=== PATIENT | male | born 1930 | race Caucasian/White ===

== ENCOUNTER 2016-12-28 10:17 | Emergency (ER) | payer OTHER, MEDICARE ==
[~2016-12-28] VITALS: Ht 177.8 cm; Wt 86.2 kg
[~2016-12-28 10:17] MED LIST: ASPIRIN325 MG PO; CLARITIN10 MG PO; Diltiazem240 MG PO; FINASTERIDE5 MG PO; LEVOTHYROXIN0.125 MG PO; MEDROL DOSEPAK4 MG PO; MULTIVITAMIN1 CTB PO; PRINIVIL10 MG PO; VICODIN 5/500 505 MG PO; ZOCOR10 MG PO
[2016-12-28 11:46] LABS: BASO # 0.1 10*3/uL (0.0-0.1); BASO % 0.8 % (0.0-1.0); EOS # 0.3 10*3/uL (0.0-0.4); EOS % 3.2 % (1.0-4.0); HEMATOCRIT 42.7 % (42.0-52.0); HEMOGLOBIN 14.4 g/dl (14.0-18.0); LYMPH # 1.9 10*3/uL (1.3-4.4); LYMPH % 22.1 % (27.0-41.0); MEAN CORPUSCULAR HGB 31.4 pg (27.0-31.0); MEAN CORPUSCULAR HGB CONC 33.7 g/dl (33.0-37.0); MEAN PLATELET VOLUME 10.3 fl (9.6-12.3); MONO # 0.9 10*3/uL (0.1-1.0); MONO % 9.8 % (3.0-9.0); NEUT # 5.6 10*3/uL (2.3-7.9); NEUT % 63.9 % (47.0-73.0); PLATELET COUNT AUTOMATED 208 10*3/uL (130-400); RED BLOOD COUNT 4.59 10*6/uL (4.50-5.90); RED CELL DISTRI WIDTH 14.3 % (0-14.5); WHITE BLOOD COUNT 8.7 10*3/uL (4.8-10.8)
[2016-12-28 11:53] LABS: ACT PARTIAL THROMBO TIME 24.9 SECONDS (20.8-31.5); BUN 16 mg/dl (7-24); CHLORIDE 102 mmol/L (98-107); CREATININE 1.32 mg/dL (0.70-1.30); INTERNATIONAL NORM RATIO 0.9 (2.0-3.5); POTASSIUM 4.2 mmol/L (3.5-5.1); SODIUM 136 mmol/L (136-145)
[2016-12-28 12:34] LABS: BILIRUBIN 1+ (NEGATIVE); BLOOD NEGATIVE (NEGATIVE); CLARITY CLEAR (CLEAR); COLOR YELLOW (YELLOW); GLUCOSE NEGATIVE (NEGATIVE); KETONE TRACE (NEGATIVE); LEUKO ESTERASE NEGATIVE (NEGATIVE); NITRITE NEGATIVE (NEGATIVE); SPECIFIC GRAVITY >= 1.030 (1.005-1.030)
[2016-12-28 12:48] LABS: MUCOUS 2+; WBC 0-2 wbc/hpf (0-5)
== END 2016-12-28 13:14 | disposition home or self-care (01) ==
LOC: ED 10:17
PROVIDERS: Emergency Medicine
DX: R31.9 Hematuria, unspecified (principal); Z79.82 Long term (current) use of aspirin; Z79.899 Other long term (current) drug therapy

== ENCOUNTER → 2017-01-09 | Outpatient (CLI) | payer MEDICARE, OTHER ==
[2017-01-09 10:30] LABS: BASO # 0.1 10*3/uL (0.0-0.1); BASO % 0.8 % (0.0-1.0); EOS # 0.3 10*3/uL (0.0-0.4); EOS % 3.8 % (1.0-4.0); HEMATOCRIT 39.5 % (42.0-52.0); HEMOGLOBIN 13.2 g/dl (14.0-18.0); LYMPH # 1.5 10*3/uL (1.3-4.4); MEAN CELL VOLUME 92.7 fl (80.0-94.0); MEAN CORPUSCULAR HGB CONC 33.4 g/dl (33.0-37.0); MEAN PLATELET VOLUME 10.3 fl (9.6-12.3); MONO # 0.8 10*3/uL (0.1-1.0); MONO % 10.4 % (3.0-9.0); NEUT # 4.6 10*3/uL (2.3-7.9); NEUT % 63.6 % (47.0-73.0); PLATELET COUNT AUTOMATED 197 10*3/uL (130-400); RED BLOOD COUNT 4.26 10*6/uL (4.50-5.90); RED CELL DISTRI WIDTH 14.1 % (0-14.5); WHITE BLOOD COUNT 7.3 10*3/uL (4.8-10.8)
[2017-01-09 10:40] LABS: ALBUMIN 3.6 gm/dl (3.1-4.5); ALKALINE PHOSPHATASE 102 U/L (45-117); BUN 26 mg/dl (7-24); CHLORIDE 105 mmol/L (98-107); SGOT/AST 16 IU/L (3-35); SGPT/ALT 19 U/L (12-78); SODIUM 141 mmol/L (136-145)
[2017-01-09 10:46] LABS: CREATININE 1.23 mg/dL (0.70-1.30)
[2017-01-09 11:56] LABS: BILIRUBIN NEGATIVE (NEGATIVE); BLOOD NEGATIVE (NEGATIVE); CLARITY CLEAR (CLEAR); COLOR YELLOW (YELLOW); GLUCOSE NEGATIVE (NEGATIVE); KETONE NEGATIVE (NEGATIVE); LEUKO ESTERASE NEGATIVE (NEGATIVE); NITRITE NEGATIVE (NEGATIVE); PH 5.5 (5.0-9.0); SPECIFIC GRAVITY 1.015 (1.005-1.030); UROBILINOGEN 0.2 E.U./dl (0.2-1.0)
[2017-01-09 12:23] LABS: EPITHELIAL CELLS 0-2; WBC 0-2 wbc/hpf (0-5)
== END ==
LOC: LAB 10:04 → CT 11:00
PROVIDERS: Urology
DX: D30.02 Benign neoplasm of left kidney (principal); D30.01 Benign neoplasm of right kidney; K57.30 Diverticulosis of large intestine without perforation or abscess without bleeding; I70.0 Atherosclerosis of aorta; K75.89 Other specified inflammatory liver diseases; N39.0 Urinary tract infection, site not specified; D40.0 Neoplasm of uncertain behavior of prostate; E78.5 Hyperlipidemia, unspecified

== ENCOUNTER → 2017-04-23 | Outpatient (CLI) | payer MEDICARE, OTHER | END | disposition home or self-care (01) | LOC: RAD 10:08 | DX: G89.29 Other chronic pain (principal); M54.5 Low back pain ==

== ENCOUNTER 2017-08-11 09:11 | Inpatient (IN) | payer MEDICARE, OTHER ==
[~2017-08-11] VITALS: Ht 175.2 cm; Wt 79.1 kg
--- NOTE | ~2017-08-11 | CON ---
[place], [place] REPORT OF CONSULTATION NAME: BO MELARA UNIT #: [id number] ROOM: 412 DOCTOR: CELESTE CHRISLEILANI BIRTHDATE: [birth year] DOS: 08/13/2017 GASTROENDOSCOPIC REPORT HISTORY OF PRESENT ILLNESS: This is an 86-year-old patient, who was presented to the Emergency Room with rectal bleeding and initially he was thought that he is actively bleeding and we were concerned to a point where we were planning to do bleeding scan. However based on follow up on blood count, it was found that the patient is not actively losing blood. His H and H at the time of admission was 12 and 37. His followup was compared, which essentially stays at the same level of hemoglobin of 12 and in fact some improvement in the last H and H. However, white blood cell remains about 15 and neutrophil of 84. 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 PAST MEDICAL HISTORY: Hypothyroidism, hypertension, hypercholesterolemia, benign prostatic hyperplasia, vitamin D deficiency, and allergic rhinitis. PAST SURGICAL HISTORY: Bilateral knee arthroscopy. MEDICATIONS: Medication list as identified in the chart. He has stopped taking aspirin for a long time. ALLERGIES: TO NO KNOWN MEDICATIONS. SOCIAL HISTORY: Nonsmoker, nonalcohol consumer. FAMILY HISTORY: Noncontributory. REVIEW OF SYSTEMS: HEENT: Denies double vision or blurred vision. RESPIRATORY: Denies acute shortness of breath. CARDIOVASCULAR: Denies acute chest pain. DIGESTIVE SYSTEM: Blood in the stool. PHYSICAL EXAMINATION: VITAL SIGNS: Stable. HEENT: Head is normocephalic, nontraumatic. Eyes: Pupils are round and reactive. Sclerae nonicteric. Conjunctivae pink. NECK: Supple. No thyromegaly. No cervical lymphadenopathy. CHEST: Symmetric anatomy, equal expansion. No wheeze. No rhonchi. HEART: Normal sinus rhythm. No gallop. No murmur. ABDOMEN: Soft. No hepato-organomegaly. Bowel sounds present. No pulsatile mass. EXTREMITIES: No cyanosis. No pedal edema. NEUROLOGIC: Alert and oriented, slow. IMPRESSION: Lower gastrointestinal bleed, source to be determined; hypothyroidism, hyperlipidemia, hypertension, and benign prostatic hyperplasia. [place], [place] REPORT OF CONSULTATION NAME: BO MELARA UNIT #: [id number] ROOM: 412 DOCTOR: CELESTE CHRIS,LEILANI BIRTHDATE: [birth year] PLAN AND DISCUSSION: We are going to colonoscopically assess the patient. OTHER ADJUNCTIVE DIAGNOSES: As outlined above in paragraph of past medical and surgical history. Thank you very much indeed. LEILANI ALONSO MD CM:CONSTR:REPORT OF CONSULTATION 1428 08/14/17 0214 interface
--- NOTE | ~2017-08-11 | O ---
[place], [place] OPERATIVE NOTE NAME: BO MELARA UNIT #: [id number] ROOM: 412 DOCTOR: CELESTE CHRIS,LEILANI BIRTHDATE: [birth year] DOS: 08/13/2017 INDICATIONS: The patient has presented with a chief complaint of blood in stool and has been admitted for definitive evaluation. The patient had been presenting with H and H of 12 and 37, although he has been keeping his H and H, we decided to do a colonoscopy because there was a tinge of blood in stools still. PROCEDURE: Today's procedure part of investigation is colonoscopy. PREMEDICATION: Propofol. SCOPE: Olympus forward-viewing colonoscope 10L video. REPORT: After putting the patient in left lateral position and application of lubricant to the scope, the scope was introduced. Thereafter under direct visualization, I advanced the length of colon without difficulty. There was presence of fresh blood and fresh red clots in the rectum all the way to mid transverse colon. Diverticulosis throughout particularly on the left side was identified. It is difficult to distinguish which diverticulum is particularly bleeding. Therefore, procedure aborted due to the compromised visualization. The patient extubated and tolerated the procedure well. IMPRESSION: Diverticular bleed, most likely. PLAN AND DISCUSSION: I am going to organize a bleeding scan stat while he is bleeding to see if we are going to come up with a higher yield of diagnosis. LEILANI ALONSO MD CM:OPRECORD:OPERATIVE NOTE [id number] LEILANI ALONSO MD 08/13/17 1719 interface
--- NOTE | ~2017-08-11 | O ---
[place], [place] OPERATIVE NOTE NAME: BO MELARA UNIT #: [id number] ROOM: 412 DOCTOR: LEILANI ALONSO MD BIRTHDATE: [birth year] DOS: 08/15/2017 SUBJECTIVE: The patient is an 86-year-old with a chief complaint of aggressive lower GI bleed with the source was difficult to define. He had bleeding scan done, initially negative. Subsequently, on the latest studies show an area of blood collection at about cecum and after preparation, the patient was brought to the operating room for a repeat colonoscopy to define if you have carcinoma at the base of cecum. PROCEDURE: Today's procedure part of investigation is colonoscopy. PREMEDICATION: Propofol. SCOPE: Olympus forward-viewing colonoscope 10L video. REPORT: After putting the patient in left lateral position and application of lubricant to the scope, the scope was introduced. Thereafter, under direct visualization, I advanced through the length of colon without difficulty. Difficulty was some retained fluid in the colon and severe diverticulosis on the way. Base of cecum finally explored, appendiceal orifice identified, ileocecal valve was defined. There was no evidence of source of bleeding, i.e., no carcinoma in the area. Severe diverticulosis; however, along the length of the colon appreciated. Air was suctioned out. On the circumferential fashion, mucosal vascularity carefully examined. The patient extubated, tolerated the procedure well. IMPRESSION: Severe diverticulosis, no bleeding site. This patient most likely has bled from the diverticulum. PLAN AND DISCUSSION: We are going to go ahead and feed him today, regular diet and we are going to avoid anticoagulant or antiplatelets at this time. FINAL DIAGNOSIS: Severe diverticulosis, no bleeding at this time. [place], [place] OPERATIVE NOTE NAME: BO MELARA UNIT #: [id number] ROOM: 412 DOCTOR: LEILANI ALONSO MD BIRTHDATE: [birth year] LEILANI ALONSO MD CM:OPRECORD:OPERATIVE NOTE 1751 [id number] LEILANI ALONSO MD 08/15/17 1824 interface
[2017-08-11 09:17] VITALS: BP 127/80
[2017-08-11 10:00] LABS: BASO # 0.1 10*3/uL (0.0-0.1); BASO % 0.8 % (0.0-1.0); EOS # 0.4 10*3/uL (0.0-0.4); EOS % 4.8 % (1.0-4.0); HEMATOCRIT 37.9 % (42.0-52.0); HEMOGLOBIN 12.4 g/dl (14.0-18.0); LYMPH # 1.4 10*3/uL (1.3-4.4); LYMPH % 19.2 % (27.0-41.0); MEAN CELL VOLUME 94.5 fl (80.0-94.0); MEAN CORPUSCULAR HGB 30.9 pg (27.0-31.0); MEAN CORPUSCULAR HGB CONC 32.7 g/dl (33.0-37.0); MEAN PLATELET VOLUME 9.9 fl (9.6-12.3); MONO # 0.9 10*3/uL (0.1-1.0); MONO % 11.9 % (3.0-9.0); NEUT # 4.7 10*3/uL (2.3-7.9); NEUT % 62.9 % (47.0-73.0); PLATELET COUNT AUTOMATED 170 10*3/uL (130-400); RED BLOOD COUNT 4.01 10*6/uL (4.50-5.90); RED CELL DISTRI WIDTH 14.5 % (0-14.5); WHITE BLOOD COUNT 7.5 10*3/uL (4.8-10.8)
[2017-08-11 10:10] LABS: ACT PARTIAL THROMBO TIME 24.1 SECONDS (20.8-31.5); INTERNATIONAL NORM RATIO 0.9 (2.0-3.5)
[2017-08-11 10:15] LABS: ALBUMIN 3.7 gm/dl (3.1-4.5); ALKALINE PHOSPHATASE 89 U/L (45-117); BUN 25 mg/dl (7-24); CHLORIDE 107 mmol/L (98-107); CREATININE 1.14 mg/dL (0.70-1.30); POTASSIUM 4.2 mmol/L (3.5-5.1); SGOT/AST 17 IU/L (3-35); SGPT/ALT 18 U/L (12-78); SODIUM 141 mmol/L (136-145); TOTAL PROTEIN 7.3 gm/dL (6.4-8.2)
[2017-08-11 10:40] VITALS: BP 117/67
[2017-08-11] MEDS ORDERED: NORCO 5-325 TA1 EACH PO (11:16)
[2017-08-11] MEDS ORDERED: Synthroid,Lev125 MCG PO (11:17)
[2017-08-11] MEDS ORDERED: LEVOTHYROXINE150 MCG PO (11:27)
[2017-08-11] MEDS ORDERED: VITAMIN D400 I1 PO (11:28)
[2017-08-11 11:30] VITALS: BP 145/68
[2017-08-11] MEDS ORDERED: SYNTHROID137 MCG PO (11:30)
[2017-08-11 16:00] VITALS: BP 131/68
[2017-08-11 18:48] LABS: BASO # 0.1 10*3/uL (0.0-0.1); BASO % 0.5 % (0.0-1.0); EOS # 0.2 10*3/uL (0.0-0.4); EOS % 2.1 % (1.0-4.0); HEMATOCRIT 36.7 % (42.0-52.0); HEMOGLOBIN 12.2 g/dl (14.0-18.0); LYMPH # 1.7 10*3/uL (1.3-4.4); LYMPH % 18.7 % (27.0-41.0); MEAN CELL VOLUME 93.9 fl (80.0-94.0); MEAN CORPUSCULAR HGB 31.2 pg (27.0-31.0); MEAN CORPUSCULAR HGB CONC 33.2 g/dl (33.0-37.0); MEAN PLATELET VOLUME 9.8 fl (9.6-12.3); MONO # 0.9 10*3/uL (0.1-1.0); MONO % 9.6 % (3.0-9.0); NEUT # 6.4 10*3/uL (2.3-7.9); NEUT % 68.9 % (47.0-73.0); PLATELET COUNT AUTOMATED 175 10*3/uL (130-400); RED BLOOD COUNT 3.91 10*6/uL (4.50-5.90); RED CELL DISTRI WIDTH 14.5 % (0-14.5); WHITE BLOOD COUNT 9.3 10*3/uL (4.8-10.8)
[2017-08-11 20:00] VITALS: BP 136/67
[2017-08-12] VITALS: BP 143/72
[2017-08-12 01:29] LABS: BASO # 0.1 10*3/uL (0.0-0.1); BASO % 0.7 % (0.0-1.0); EOS # 0.3 10*3/uL (0.0-0.4); EOS % 3.9 % (1.0-4.0); HEMATOCRIT 35.4 % (42.0-52.0); HEMOGLOBIN 11.5 g/dl (14.0-18.0); LYMPH # 1.9 10*3/uL (1.3-4.4); LYMPH % 24.8 % (27.0-41.0); MEAN CELL VOLUME 94.7 fl (80.0-94.0); MEAN CORPUSCULAR HGB 30.7 pg (27.0-31.0); MEAN CORPUSCULAR HGB CONC 32.5 g/dl (33.0-37.0); MEAN PLATELET VOLUME 10.5 fl (9.6-12.3); MONO # 0.8 10*3/uL (0.1-1.0); MONO % 10.9 % (3.0-9.0); NEUT # 4.5 10*3/uL (2.3-7.9); NEUT % 59.4 % (47.0-73.0); PLATELET COUNT AUTOMATED 170 10*3/uL (130-400); RED BLOOD COUNT 3.74 10*6/uL (4.50-5.90); RED CELL DISTRI WIDTH 14.5 % (0-14.5); WHITE BLOOD COUNT 7.5 10*3/uL (4.8-10.8)
[2017-08-12 06:40] LABS: BASO # 0.1 10*3/uL (0.0-0.1); BASO % 0.7 % (0.0-1.0); EOS # 0.3 10*3/uL (0.0-0.4); EOS % 4.4 % (1.0-4.0); LYMPH # 1.4 10*3/uL (1.3-4.4); LYMPH % 20.5 % (27.0-41.0); MEAN CELL VOLUME 93.5 fl (80.0-94.0); MEAN CORPUSCULAR HGB 31.2 pg (27.0-31.0); MEAN CORPUSCULAR HGB CONC 33.3 g/dl (33.0-37.0); MEAN PLATELET VOLUME 10.5 fl (9.6-12.3); MONO # 0.8 10*3/uL (0.1-1.0); MONO % 11.2 % (3.0-9.0); NEUT # 4.4 10*3/uL (2.3-7.9); NEUT % 62.9 % (47.0-73.0); PLATELET COUNT AUTOMATED 174 10*3/uL (130-400); RED BLOOD COUNT 3.85 10*6/uL (4.50-5.90); RED CELL DISTRI WIDTH 14.6 % (0-14.5)
[2017-08-12 07:14] LABS: ALBUMIN 3.5 gm/dl (3.1-4.5); ALKALINE PHOSPHATASE 89 U/L (45-117); BUN 17 mg/dl (7-24); CHLORIDE 107 mmol/L (98-107); CREATININE 1.04 mg/dL (0.70-1.30); SGOT/AST 15 IU/L (3-35); SGPT/ALT 16 U/L (12-78); SODIUM 142 mmol/L (136-145); TOTAL PROTEIN 7.3 gm/dL (6.4-8.2)
[2017-08-12 08:00] VITALS: BP 129/74
[2017-08-12 11:48] LABS: BASO % 0.4 % (0.0-1.0); EOS # 0.2 10*3/uL (0.0-0.4); EOS % 2.6 % (1.0-4.0); HEMOGLOBIN 13.9 g/dl (14.0-18.0); LYMPH # 1.9 10*3/uL (1.3-4.4); MEAN CORPUSCULAR HGB 30.8 pg (27.0-31.0); MEAN CORPUSCULAR HGB CONC 32.8 g/dl (33.0-37.0); MEAN PLATELET VOLUME 10.3 fl (9.6-12.3); MONO # 0.8 10*3/uL (0.1-1.0); MONO % 9.4 % (3.0-9.0); NEUT # 5.9 10*3/uL (2.3-7.9); NEUT % 66.3 % (47.0-73.0); PLATELET COUNT AUTOMATED 204 10*3/uL (130-400); RED BLOOD COUNT 4.51 10*6/uL (4.50-5.90); RED CELL DISTRI WIDTH 14.3 % (0-14.5); WHITE BLOOD COUNT 8.9 10*3/uL (4.8-10.8)
[2017-08-12 12:00] VITALS: BP 144/79
[2017-08-12 12:01] LABS: HEMATOCRIT 42.4 % (42.0-52.0)
[2017-08-12 16:00] VITALS: BP 124/63
[2017-08-12 20:00] VITALS: BP 124/61
[2017-08-13] VITALS (8 sets, daily range): BP systolic 90–160; BP diastolic 38–83
[2017-08-13 06:42] LABS: BASO # 0.1 10*3/uL (0.0-0.1); BASO % 0.3 % (0.0-1.0); EOS # 0.1 10*3/uL (0.0-0.4); EOS % 0.4 % (1.0-4.0); HEMATOCRIT 37.3 % (42.0-52.0); HEMOGLOBIN 12.1 g/dl (14.0-18.0); LYMPH % 6.6 % (27.0-41.0); MEAN CELL VOLUME 94.2 fl (80.0-94.0); MEAN CORPUSCULAR HGB 30.6 pg (27.0-31.0); MEAN CORPUSCULAR HGB CONC 32.4 g/dl (33.0-37.0); MEAN PLATELET VOLUME 10.8 fl (9.6-12.3); MONO # 1.1 10*3/uL (0.1-1.0); MONO % 7.2 % (3.0-9.0); NEUT # 13.2 10*3/uL (2.3-7.9); NEUT % 84.9 % (47.0-73.0); PLATELET COUNT AUTOMATED 174 10*3/uL (130-400); RED BLOOD COUNT 3.96 10*6/uL (4.50-5.90); RED CELL DISTRI WIDTH 14.5 % (0-14.5); WHITE BLOOD COUNT 15.5 10*3/uL (4.8-10.8)
[2017-08-13 19:49] LABS: HEMATOCRIT 35.8 % (42.0-52.0); HEMOGLOBIN 11.9 g/dl (14.0-18.0)
[2017-08-14] VITALS: BP 140/87
[2017-08-14 07:17] LABS: BASO # 0.1 10*3/uL (0.0-0.1); BASO % 0.5 % (0.0-1.0); EOS # 0.2 10*3/uL (0.0-0.4); EOS % 2.6 % (1.0-4.0); HEMATOCRIT 34.7 % (42.0-52.0); HEMOGLOBIN 11.4 g/dl (14.0-18.0); LYMPH # 1.2 10*3/uL (1.3-4.4); LYMPH % 13.2 % (27.0-41.0); MEAN CORPUSCULAR HGB 30.9 pg (27.0-31.0); MEAN CORPUSCULAR HGB CONC 32.9 g/dl (33.0-37.0); MEAN PLATELET VOLUME 10.4 fl (9.6-12.3); MONO # 0.9 10*3/uL (0.1-1.0); MONO % 9.9 % (3.0-9.0); NEUT # 6.8 10*3/uL (2.3-7.9); NEUT % 73.6 % (47.0-73.0); PLATELET COUNT AUTOMATED 150 10*3/uL (130-400); RED BLOOD COUNT 3.69 10*6/uL (4.50-5.90); RED CELL DISTRI WIDTH 14.5 % (0-14.5); WHITE BLOOD COUNT 9.2 10*3/uL (4.8-10.8)
[2017-08-14 07:31] LABS: BUN 16 mg/dl (7-24); CHLORIDE 110 mmol/L (98-107); POTASSIUM 3.9 mmol/L (3.5-5.1); SODIUM 142 mmol/L (136-145)
[2017-08-14 07:32] LABS: CREATININE 0.93 mg/dL (0.70-1.30)
[2017-08-14 08:00] VITALS: BP 142/90
[2017-08-14 12:00] VITALS: BP 148/52
[2017-08-14 16:00] VITALS: BP 133/75
[2017-08-14 20:00] VITALS: BP 133/74
[2017-08-15] VITALS (9 sets, daily range): BP systolic 111–150; BP diastolic 61–82
[2017-08-15 07:20] LABS: BASO % 0.3 % (0.0-1.0); EOS # 0.1 10*3/uL (0.0-0.4); EOS % 0.6 % (1.0-4.0); HEMATOCRIT 32.3 % (42.0-52.0); HEMOGLOBIN 10.7 g/dl (14.0-18.0); LYMPH # 1.1 10*3/uL (1.3-4.4); LYMPH % 9.8 % (27.0-41.0); MEAN CELL VOLUME 93.4 fl (80.0-94.0); MEAN CORPUSCULAR HGB 30.9 pg (27.0-31.0); MEAN CORPUSCULAR HGB CONC 33.1 g/dl (33.0-37.0); MEAN PLATELET VOLUME 10.8 fl (9.6-12.3); MONO # 1.3 10*3/uL (0.1-1.0); MONO % 11.7 % (3.0-9.0); NEUT # 8.5 10*3/uL (2.3-7.9); NEUT % 77.2 % (47.0-73.0); PLATELET COUNT AUTOMATED 170 10*3/uL (130-400); RED BLOOD COUNT 3.46 10*6/uL (4.50-5.90); RED CELL DISTRI WIDTH 14.2 % (0-14.5); WHITE BLOOD COUNT 11.1 10*3/uL (4.8-10.8)
[2017-08-15 07:35] LABS: BUN 12 mg/dl (7-24); CHLORIDE 107 mmol/L (98-107); POTASSIUM 3.5 mmol/L (3.5-5.1); SODIUM 141 mmol/L (136-145)
[2017-08-16] VITALS: BP 106/48
[2017-08-16 07:22] LABS: BASO % 0.3 % (0.0-1.0); EOS # 0.2 10*3/uL (0.0-0.4); EOS % 1.3 % (1.0-4.0); HEMATOCRIT 31.6 % (42.0-52.0); HEMOGLOBIN 10.5 g/dl (14.0-18.0); LYMPH # 1.6 10*3/uL (1.3-4.4); LYMPH % 14.2 % (27.0-41.0); MEAN CELL VOLUME 94.3 fl (80.0-94.0); MEAN CORPUSCULAR HGB 31.3 pg (27.0-31.0); MEAN CORPUSCULAR HGB CONC 33.2 g/dl (33.0-37.0); MEAN PLATELET VOLUME 10.9 fl (9.6-12.3); MONO # 1.3 10*3/uL (0.1-1.0); MONO % 11.2 % (3.0-9.0); NEUT # 8.2 10*3/uL (2.3-7.9); NEUT % 72.5 % (47.0-73.0); PLATELET COUNT AUTOMATED 172 10*3/uL (130-400); RED BLOOD COUNT 3.35 10*6/uL (4.50-5.90); RED CELL DISTRI WIDTH 14.5 % (0-14.5); WHITE BLOOD COUNT 11.3 10*3/uL (4.8-10.8)
[2017-08-16 08:00] VITALS: BP 126/58
[2017-08-16 08:00] LABS: BUN 13 mg/dl (7-24); CHLORIDE 106 mmol/L (98-107); CREATININE 0.98 mg/dL (0.70-1.30); POTASSIUM 3.5 mmol/L (3.5-5.1); SODIUM 141 mmol/L (136-145)
[2017-08-16 12:00] VITALS: BP 130/65
[2017-08-16 16:00] VITALS: BP 120/55
[2017-08-16 20:00] VITALS: BP 131/58
[2017-08-17] VITALS: BP 119/61; BP 131/49
[2017-08-17 07:00] LABS: BASO % 0.4 % (0.0-1.0); EOS # 0.3 10*3/uL (0.0-0.4); EOS % 2.7 % (1.0-4.0); HEMATOCRIT 29.6 % (42.0-52.0); HEMOGLOBIN 9.8 g/dl (14.0-18.0); LYMPH # 1.4 10*3/uL (1.3-4.4); LYMPH % 14.7 % (27.0-41.0); MEAN CELL VOLUME 92.8 fl (80.0-94.0); MEAN CORPUSCULAR HGB 30.7 pg (27.0-31.0); MEAN CORPUSCULAR HGB CONC 33.1 g/dl (33.0-37.0); MEAN PLATELET VOLUME 10.6 fl (9.6-12.3); MONO # 1.3 10*3/uL (0.1-1.0); MONO % 13.5 % (3.0-9.0); NEUT # 6.6 10*3/uL (2.3-7.9); NEUT % 68.3 % (47.0-73.0); PLATELET COUNT AUTOMATED 167 10*3/uL (130-400); RED BLOOD COUNT 3.19 10*6/uL (4.50-5.90); RED CELL DISTRI WIDTH 14.6 % (0-14.5); WHITE BLOOD COUNT 9.7 10*3/uL (4.8-10.8)
[2017-08-17 08:00] VITALS: BP 131/54
== END 2017-08-17 10:58 | disposition home or self-care (01) | DRG 379 ==
LOC: ED 09:11 → 4E 10:41 → EDHOLD 10:41 → 4E 10:50
PROVIDERS: Emergency Medicine; Family Medicine; Internal Medicine; Internal Medicine Gastroenterology; Internal Medicine Nephrology
PROC: 0DJD8ZZ Inspection of Lower Intestinal Tract, Via Natural or Artificial Opening Endoscopic (ICD-10-PCS; principal; 2017-08-13)
PROC: 0DJD8ZZ Inspection of Lower Intestinal Tract, Via Natural or Artificial Opening Endoscopic (ICD-10-PCS; 2017-08-15)
DX: K57.91 Diverticulosis of intestine, part unspecified, without perforation or abscess with bleeding (principal); D64.9 Anemia, unspecified; G89.29 Other chronic pain; M54.9 Dorsalgia, unspecified; N40.0 Benign prostatic hyperplasia without lower urinary tract symptoms; E78.00 Pure hypercholesterolemia, unspecified; E03.9 Hypothyroidism, unspecified; E55.9 Vitamin D deficiency, unspecified; E78.5 Hyperlipidemia, unspecified; J30.2 Other seasonal allergic rhinitis; I10 Essential (primary) hypertension; Z96.653 Presence of artificial knee joint, bilateral; Z79.899 Other long term (current) drug therapy; Z79.82 Long term (current) use of aspirin; Z82.49 Family history of ischemic heart disease and other diseases of the circulatory system

== ENCOUNTER → 2017-08-20 | Outpatient (CLI) | payer MEDICARE, OTHER ==
[~2017-08-20] MED LIST changes: +LEVOTHYROXINE150 MCG PO; +NORCO 5-325 TA1 EACH PO; +SYNTHROID137 MCG PO; +Synthroid,Lev125 MCG PO; +VITAMIN D400 I1 PO
[2017-08-20 12:11] LABS: BASO # 0.1 10*3/uL (0.0-0.1); BASO % 0.7 % (0.0-1.0); EOS # 0.5 10*3/uL (0.0-0.4); EOS % 6.4 % (1.0-4.0); HEMATOCRIT 31.5 % (42.0-52.0); HEMOGLOBIN 10.2 g/dl (14.0-18.0); LYMPH # 1.4 10*3/uL (1.3-4.4); LYMPH % 16.6 % (27.0-41.0); MEAN CELL VOLUME 94.9 fl (80.0-94.0); MEAN CORPUSCULAR HGB 30.7 pg (27.0-31.0); MEAN CORPUSCULAR HGB CONC 32.4 g/dl (33.0-37.0); MEAN PLATELET VOLUME 10.8 fl (9.6-12.3); MONO # 0.8 10*3/uL (0.1-1.0); MONO % 10.1 % (3.0-9.0); NEUT # 5.3 10*3/uL (2.3-7.9); NEUT % 65.7 % (47.0-73.0); PLATELET COUNT AUTOMATED 249 10*3/uL (130-400); RED BLOOD COUNT 3.32 10*6/uL (4.50-5.90); RED CELL DISTRI WIDTH 14.5 % (0-14.5); WHITE BLOOD COUNT 8.1 10*3/uL (4.8-10.8)
== END | disposition home or self-care (01) ==
LOC: LAB 10:21
PROVIDERS: Internal Medicine
DX: D72.810 Lymphocytopenia (principal)

== ENCOUNTER → 2018-11-12 | Outpatient (CLI) | payer MEDICARE, OTHER | END | disposition home or self-care (01) | LOC: RAD 10:59 | DX: M16.0 Bilateral primary osteoarthritis of hip (principal); M41.86 Other forms of scoliosis, lumbar region; M47.816 Spondylosis without myelopathy or radiculopathy, lumbar region ==

== ENCOUNTER 2019-07-23 11:00 | Inpatient (IN) | payer OTHER ==
[~2019-07-23] VITALS: Ht 177.8 cm; Wt 81.0 kg
[~2019-07-23 11:00] MED LIST changes: +DILTIAZEM ER120 MG PO; -Diltiazem240 MG PO
[2019-07-23 11:27] VITALS: BP 113/80
[2019-07-23 11:41] LABS: BASO % 0.5 % (0.0-1.0); EOS # 0.1 10*3/uL (0.0-0.4); EOS % 0.6 % (1.0-4.0); HEMATOCRIT 34.2 % (42.0-52.0); LYMPH # 0.6 10*3/uL (1.3-4.4); LYMPH % 7.7 % (27.0-41.0); MEAN CELL VOLUME 93.4 fl (80.0-94.0); MEAN CORPUSCULAR HGB 29.8 pg (27.0-31.0); MEAN CORPUSCULAR HGB CONC 31.9 g/dl (33.0-37.0); MEAN PLATELET VOLUME 10.1 fl (9.6-12.3); MONO # 1.1 10*3/uL (0.1-1.0); NEUT # 6.3 10*3/uL (2.3-7.9); PLATELET COUNT AUTOMATED 273 10*3/uL (130-400); RED BLOOD COUNT 3.66 10*6/uL (4.50-5.90); RED CELL DISTRI WIDTH 14.4 % (0-14.5); WHITE BLOOD COUNT 8.1 10*3/uL (4.8-10.8)
[2019-07-23 11:52] LABS: ACT PARTIAL THROMBO TIME 30.5 SECONDS (20.0-32.1)
[2019-07-23 11:57] LABS: ALBUMIN 2.4 gm/dl (3.1-4.5); ALKALINE PHOSPHATASE 58 U/L (45-117); BUN 17 mg/dl (7-24); CHLORIDE 108 mmol/L (98-107); POTASSIUM 4.1 mmol/L (3.5-5.1); SGOT/AST 16 IU/L (3-35); SGPT/ALT 22 U/L (12-78); SODIUM 140 mmol/L (136-145); TOTAL PROTEIN 6.7 gm/dL (6.4-8.2)
[2019-07-23 12:00] LABS: TROPONIN I 0.047 ng/ml (<0.045)
--- NOTE | 2019-07-23 12:10 | NUR ---
PATIENT DENIES WOUNDS A&OX3.
[2019-07-23 12:12] VITALS: BP 121/77
--- NOTE | 2019-07-23 14:40 | NUR ---
A 88, admitted to , under the services of MECHE Roberson DO with a diagnosis of CHF. Chief complaint is SOB. Patient arrived via stretcher from ER. Monitor applied. Initial assessment completed. Vital signs taken and recorded. MECHE ROBERSON DO notified of admission to the unit. Orders received. See assessment for past medical history, medications and allergies. Patient and/or family oriented to unit. [facility] visitation policy reviewed. Clothing/patient valuable form completed. ANNABEL SYED
[2019-07-23 14:41] VITALS: BP 130/84
--- NOTE | 2019-07-23 14:41 | NUR ---
PATIENT TAKEN TO 5TH FLOOR BY THIS NURSE AND REPORT GIVEN TO ANNABEL LEMUS SBAR FAXED.
[2019-07-23] MEDS ORDERED: MOTRIN IB200 M1 PO (14:42)
[2019-07-23 15:00] VITALS: BP 118/84
[2019-07-23 16:00] VITALS: BP 114/68
--- NOTE | 2019-07-23 16:27 | NUR ---
attempted to call consult to dr. pearl office, several attempts made, no one distribution tech at this time to take call.
[2019-07-23] MEDS ORDERED: SYNTHROID,LEVO88 MCG PO (16:32)
[2019-07-23] MEDS ORDERED: FLOMAX0.4 MG PO (16:32)
[2019-07-23] MEDS ORDERED: ARTIFICIAL TEAR1514 OP (16:34)
--- NOTE | 2019-07-23 16:55 | NUR ---
DR. DENT OFFICE ANSWERING SERVICE AWARE OF CONSULT
--- NOTE | 2019-07-23 18:30 | NUR ---
DR. PHAM AWARE OF RUNS OF [facility], NO NEW ORDERS AT THIS TIME. CARDIOLOGY IS ALREADY CONSULTED AND WILL SEE TOMORROW.
--- NOTE | 2019-07-23 18:37 | NUR ---
DR. PHAM NOTIFIED THAT PATIENT VOID 250 AND PVR WAS 726. DR. PHAM TO ENTER ORDERS FOR HANCOCK CATH.
--- NOTE | 2019-07-23 18:48 | NUR ---
DR VILLAVICENCIO NOTIFIED OF CONSULT, NOTIFIED TO VIEW CT SCAN, DR. VILLAVICENCIO IS HAVING DIFFICULTY LOOKING AT CT SCAN FROM HOME.WILL SEE IN THE MORNING
--- NOTE | 2019-07-23 18:53 | NUR ---
#16 HANCOCK PLACED WITHOUT DIFFICULTY, CLEAR YELLOW URINE OBTAINED.
--- NOTE | 2019-07-23 19:02 | NUR ---
DR. VILLAVICENCIO CALLED BACK AND WAS ABLE TO VIEW CT SCAN, DR. VILLAVICENCIO WANTS PATIENT TESTING FOR COVID AND PUT IN ISOLATION. METAL SORTER NOTIFIED
[2019-07-23 19:31] LABS: ABG BASE EXCESS 4.8 mmol/L (-2.0-2.0); ARTERIAL BLOOD GAS PH 7.489 (7.35-7.45)
[2019-07-23 20:00] VITALS: BP 107/55
[2019-07-24] VITALS: BP 106/67
[2019-07-24 04:00] VITALS: BP 105/73
[2019-07-24 05:51] LABS: BASO # 0.1 10*3/uL (0.0-0.1); BASO % 0.7 % (0.0-1.0); EOS # 0.1 10*3/uL (0.0-0.4); EOS % 1.5 % (1.0-4.0); HEMATOCRIT 34.4 % (42.0-52.0); LYMPH # 0.8 10*3/uL (1.3-4.4); LYMPH % 10.1 % (27.0-41.0); MEAN CELL VOLUME 94.8 fl (80.0-94.0); MEAN CORPUSCULAR HGB CONC 31.7 g/dl (33.0-37.0); MEAN PLATELET VOLUME 10.2 fl (9.6-12.3); MONO % 12.5 % (3.0-9.0); PLATELET COUNT AUTOMATED 246 10*3/uL (130-400); RED BLOOD COUNT 3.63 10*6/uL (4.50-5.90); RED CELL DISTRI WIDTH 14.4 % (0-14.5)
[2019-07-24 06:33] LABS: BUN 16 mg/dl (7-24); CHLORIDE 104 mmol/L (98-107); CREATININE 0.95 mg/dL (0.70-1.30); POTASSIUM 3.8 mmol/L (3.5-5.1); SODIUM 139 mmol/L (136-145)
[2019-07-24 08:00] VITALS: BP 111/52; BP 99/61
--- NOTE | 2019-07-24 09:30 | NUR ---
City Assessor in to talk to patient. Patient states lives at home with . There are no steps in the home. Physician: evangelista wang [place] health services: none Patient's level of ADLs: MINIMAL ASSIST Patient has working utilities: all working DME: cane and walker Follow-up physician's appointment after d/c: will be made by hospitalist nurse upon discharge Does patient want to access PORTAL?: no Discharge plan discussed with patient's daughter Rahda. radha stated patient lives at home with , he uses a cane or walker for ambulation, does not drive. family takes patient and to doctors appointments or the grocery store. discussed with Radha patient not getting around very well at home and possibly going to a short term assisted where he will receive 5 days of physical therapy and 24 hour care. daughter stated she would discuss this with her mom, daughter stated she and her mom had this discussion about a short term skilled a few weeks ago and mom stated she would not let patient go to a SNF, also discussed with her VNA and educated her on the services they provide, daughter stated she would talk with her mom regarding this but mom had stated she did not want anyone in their home, daughter will contact case management when she has discussed this with mom,. JAKY LEONARD
--- NOTE | 2019-07-24 09:30 | NUR ---
RESTING IN BED. CONFUSED TO PLACE AND TIME. PALE. RALES HEARD IN ANTERIOR LUNG SOUNDS. 1+EDEMA NOTED TO BILATERAL LOWER LEGS. BP 99/61
[2019-07-24 12:00] VITALS: BP 106/45
--- NOTE | 2019-07-24 13:15 | NUR ---
Abnormal echo noted due to low EF. nurse notified. Dr. hansen notified.
[2019-07-24 16:00] VITALS: BP 94/48
[2019-07-24 20:00] VITALS: BP 102/69
--- NOTE | 2019-07-24 20:00 | NUR ---
Patient resting with no signs of distress. Monitoring on screen.
--- NOTE | 2019-07-24 23:00 | NUR ---
ASSUMED CARE FOR THIS PT AT THIS TIME. PT RESTING QUIETLY IN BED. NO C/O VOICED. PT REFUSING TO BE TURNED AT THIS TIME. BED IN LOW POSITION W/WHEELS LOCKED AND ALARM ON. BED BATH OFFERED. PT ONLY WANTS HIS FACE WASHED. WARM WASH CLOTH OFFERED AND ACCEPTED. CALL LIGHT IN REACH.
[2019-07-25] VITALS: BP 101/62
--- NOTE | 2019-07-25 02:40 | NUR ---
BIGEMINY NOTED AT THIS TIME. PT RESTING QUIETLY IN BED. NO S/S OF DISTRESS NOTED.
--- NOTE | 2019-07-25 03:56 | NUR ---
24 HR chart check completed.
--- NOTE | 2019-07-25 04:20 | NUR ---
PT HAD A RUN OF SVT, HR 135. DR. WILSON ON FLOOR AND MADE AWARE. PT ASYMPTOMATIC AND IMMEDIATELY BACK INTO SR W/BIGEMINY. WILL CONTINUE TO MONITOR.
[2019-07-25 05:48] LABS: ALBUMIN 2.1 gm/dl (3.1-4.5); ALKALINE PHOSPHATASE 56 U/L (45-117); BUN 17 mg/dl (7-24); CHLORIDE 99 mmol/L (98-107); CREATININE 1.01 mg/dL (0.70-1.30); POTASSIUM 3.4 mmol/L (3.5-5.1); SGOT/AST 17 IU/L (3-35); SGPT/ALT 18 U/L (12-78); SODIUM 137 mmol/L (136-145); TOTAL PROTEIN 6.4 gm/dL (6.4-8.2)
[2019-07-25 06:08] LABS: BASO % 0.4 % (0.0-1.0); EOS # 0.2 10*3/uL (0.0-0.4); EOS % 2.3 % (1.0-4.0); HEMATOCRIT 34.1 % (42.0-52.0); LYMPH % 14.2 % (27.0-41.0); MEAN CELL VOLUME 93.9 fl (80.0-94.0); MEAN CORPUSCULAR HGB 29.8 pg (27.0-31.0); MEAN CORPUSCULAR HGB CONC 31.7 g/dl (33.0-37.0); MEAN PLATELET VOLUME 10.7 fl (9.6-12.3); MONO % 13.9 % (3.0-9.0); NEUT # 4.8 10*3/uL (2.3-7.9); NEUT % 68.9 % (47.0-73.0); PLATELET COUNT AUTOMATED 266 10*3/uL (130-400); RED BLOOD COUNT 3.63 10*6/uL (4.50-5.90); RED CELL DISTRI WIDTH 14.3 % (0-14.5)
[2019-07-25 08:00] VITALS: BP 98/58
--- NOTE | 2019-07-25 09:13 | NUR ---
PATIENT RSTING IN BED. NO COMPLAINTS VOICED. ROUTINE MEDICATIONS GIVEN WITHOUT DIFFICULTY. BREAKFAST SET UP PER PATIENT'S PREFERENCE.
--- NOTE | 2019-07-25 10:10 | NUR ---
NOTIFIED DR SANABRIA AND DR TAVARES THAT PATIENT'S QT IS 509. NEW ORDERS RECEIVED.
--- NOTE | 2019-07-25 10:23 | NUR ---
PATIENT'S HEART RATE INCREASED TO 130-140 FOR ABOUT 2 MINUTES. PATIENT SEEMS ASYMPTOMATIC. HR 85 NOW.
--- NOTE | 2019-07-25 10:49 | NUR ---
CERTIFIED ORTHOPTIST RECEIVED CALL FROM PATIENTS DAUGHTER. PASSCODE VERFIED. PATIENTS DAUGHTER WANTED TO MAKE SURE THAT IT WAS KNOWN THE DISCHARGE PLAN IS FOR THE PATIENT TO RETURN HOME WITH HOME HEALTH. CERTIFIED ORTHOPTIST ASKED WHAT AGENCY THEY WOULD LIKE, PATIENT DAUGHTER STATED THEY HAVE NOT THOUGHT ABOUT IT. CERTIFIED ORTHOPTIST OFFERED TO EMAIL HER A LIST OF AGENCIES. EMAILED SENT TO WILL AWAIT RETURN CALL WITH HOME HEALTH AGENCY DECISION. FAMILY WOULD LIKE [facility]. MEDICAL MICROBIOLOGIST NOTIFIED.
--- NOTE | 2019-07-25 13:49 | NUR ---
FILTER WASHER AND PRESSER FA[facility]ED [facility]
[2019-07-25 14:00] VITALS: BP 90/60
[2019-07-25 14:38] LABS: BUN 18 mg/dl (7-24); CHLORIDE 97 mmol/L (98-107); CREATININE 1.03 mg/dL (0.70-1.30); POTASSIUM 3.4 mmol/L (3.5-5.1); SODIUM 136 mmol/L (136-145)
--- NOTE | 2019-07-25 14:55 | NUR ---
DR SANABRIA NOTIFIED OF POTASIUM AND MAGNESIUM LEVEL. NEW ORDERS RECEIVED.
--- NOTE | 2019-07-25 16:00 | NUR ---
Family updated when they called in.
[2019-07-25 16:10] VITALS: BP 90/42
--- NOTE | 2019-07-25 16:10 | NUR ---
Assumed care of this pt. PT alert and comfortable. Lungs diminished with posterior rales. Pt had o2 off at this time. Reapplied via Nc to pt. Pt o2 was set to 3l. Denies pain. HR irregular. Afib on monitor with pvcs.
--- NOTE | 2019-07-25 19:30 | NUR ---
ASSUMED CARE FOR THIS PT AT THIS TIME. PT RESTING QUIETLY IN BED. PT HAVING RUNS OF PVC'S. PT ASYMPTOMATIC. VSS. WILL CONTINUE TO MONITOR.
[2019-07-25 20:00] VITALS: BP 96/49
--- NOTE | 2019-07-25 20:00 | NUR ---
PT HAD [address] BEAT RUN OF SVT. DR. GRULLON NOTIFIED. STAT EKG, BMP, MG ORDERED.
--- NOTE | 2019-07-25 20:19 | NUR ---
DR. MACIAS NOTIFIED OF PT'S 22 BEAT RUN OF PVC'S. T.O. RCVD FOR METOPROLOL SUCCINATE 12.5 MG PO DAILY TO START NOW AND PARAMETERS TO HOLD IF SBP <90. WILL SEE PT TOMORROW.
[2019-07-25 21:46] LABS: BUN 20 mg/dl (7-24); CHLORIDE 97 mmol/L (98-107); CREATININE 1.07 mg/dL (0.70-1.30); POTASSIUM 3.6 mmol/L (3.5-5.1); SODIUM 135 mmol/L (136-145)
[2019-07-26 00:03] VITALS: BP 81/48
--- NOTE | 2019-07-26 00:19 | NUR ---
DR. GRULLON NOTIFIED OF PT'S LOW BP. MONITOR PT AT THIS TIME.
--- NOTE | 2019-07-26 03:35 | NUR ---
DR. GRULLON NOTIFIED OF PT'S BUTTOCKS RED/SORE. TO ORDER CALAZIME TO AREA.
[2019-07-26 04:00] VITALS: BP 101/61
[2019-07-26 06:17] LABS: BASO % 0.4 % (0.0-1.0); EOS # 0.1 10*3/uL (0.0-0.4); EOS % 1.1 % (1.0-4.0); HEMATOCRIT 34.4 % (42.0-52.0); LYMPH # 0.7 10*3/uL (1.3-4.4); LYMPH % 7.9 % (27.0-41.0); MEAN CELL VOLUME 92.7 fl (80.0-94.0); MEAN CORPUSCULAR HGB 29.9 pg (27.0-31.0); MEAN CORPUSCULAR HGB CONC 32.3 g/dl (33.0-37.0); MONO # 1.2 10*3/uL (0.1-1.0); MONO % 13.9 % (3.0-9.0); NEUT # 6.8 10*3/uL (2.3-7.9); NEUT % 76.4 % (47.0-73.0); PLATELET COUNT AUTOMATED 253 10*3/uL (130-400); RED BLOOD COUNT 3.71 10*6/uL (4.50-5.90); RED CELL DISTRI WIDTH 14.2 % (0-14.5); WHITE BLOOD COUNT 8.9 10*3/uL (4.8-10.8)
[2019-07-26 06:46] LABS: ALBUMIN 2.1 gm/dl (3.1-4.5); ALKALINE PHOSPHATASE 51 U/L (45-117); BUN 18 mg/dl (7-24); CHLORIDE 99 mmol/L (98-107); CREATININE 1.02 mg/dL (0.70-1.30); SGOT/AST 14 IU/L (3-35); SGPT/ALT 16 U/L (12-78); SODIUM 137 mmol/L (136-145); TOTAL PROTEIN 6.7 gm/dL (6.4-8.2)
[2019-07-26 08:00] VITALS: BP 109/71
--- NOTE | 2019-07-26 10:37 | NUR ---
PT REFUSES OUTDOOR EDUCATION TEACHER AT THIS TIME.
[2019-07-26 12:00] VITALS: BP 110/76
--- NOTE | 2019-07-26 19:00 | NUR ---
ASSUMED CARE FOR THIS PT AT THIS TIME. PT RESTING QUIETLY IN BED. PT C/O BLE PAIN. WILL MEDICATE. ALERT AND ORIENTED TO PERSON/TIME. PT THINKS HE IS HOME. REORIENTED TO PLACE. PT LETHARGIC. HEART MONITOR REPLACED. BED ALARM ON W/WHEELS LOCKED AND CALL LIGHT IN REACH.
[2019-07-26 20:00] VITALS: BP 96/46
--- NOTE | 2019-07-26 21:10 | NUR ---
ENTERED PT'S ROOM TO GIVE HIM COFFEE PER HIS REQUEST. PT IN RESP DISTRESS, RESPS TACHY AND LABORED, C/O SOB, SAT 81% ON 2LNC. PT REPOSITIONED IN BED AND SAT UP. O2 INCREASED TO 10LHFNC. PT SAT INCREASED TO 92% AND PT STATES BREATHING IS EASIER W/RESP LESS LABORED. PT NOTED W/MOIST COUGH AND EXPECTORATED THICK YELLOW SPUTUM. WILL CONTINUE TO MONITOR.
--- NOTE | 2019-07-26 21:35 | NUR ---
DR. FONG NOTIFIED OF PT'S CONTINUED C/O SOB. SAT 92-93% ON 10LNCHF. TO COME UP AND SEE PT.
--- NOTE | 2019-07-26 21:50 | NUR ---
PT MEDICATED W/TYLENOL 650MG PO FOR C/O BLE PAIN. BLE ELEVATED. INCONTINENCE CARE GIVEN AND PT REPOSITIONED FOR COMFORT. SAT 94%. O2 DECREASED TO 8LNCHF. WILL CONTINUE TO MONITOR.
--- NOTE | 2019-07-26 22:45 | NUR ---
SAT 97%. PT RESTING QUIETLY IN BED. O2 DECREASED TO 5LNCHF. WILL CONTINUE TO MONITOR.
--- NOTE | 2019-07-26 22:50 | NUR ---
PT RESTING QUIETLY IN BED. NO S/S OF RESP DISTRESS OR PAIN NOTED. BED ALARM ON. CALL LIGHT IN REACH.
[2019-07-26 23:00] VITALS: BP 68/40
--- NOTE | 2019-07-26 23:14 | NUR ---
DR. FONG NOTIFIED OF PT'S MANUAL BP OF 68/40. ADVISED TO CALL CARDIOLOGY.
--- NOTE | 2019-07-26 23:22 | NUR ---
DR. DENT NOTIFIED OF PT'S LOW SAT AND RESP DISTRESS EARLIER AND MANUAL BP OF 68/4O. MONITOR PT AND RECHECK BP IN HALF. CALL IF SBP REMAINS <90.
--- NOTE | 2019-07-26 23:40 | NUR ---
[facility] Dent/DR. DENT'S OFFICE TO RETURN CALL.
[2019-07-27] VITALS (8 sets, daily range): BP systolic 72–109; BP diastolic 46–72
--- NOTE | 2019-07-27 00:13 | NUR ---
[facility] Dent/DR. DENT'S OFFICE TO CALL BACK.
--- NOTE | 2019-07-27 00:22 | NUR ---
DR. FONG NOTIFIED OF PT'S BP OF 72/[address] AND UNABLE TO CONTACT DR. DENT FOR BP UPDATE. CONTINUE TO MONITOR PT AND BP.
--- NOTE | 2019-07-27 00:41 | NUR ---
DR. DENT RETURNED CALL. T.O. [facility] FOR 500CC NS BOLUS.
--- NOTE | 2019-07-27 00:44 | NUR ---
DR. FONG NOTIFIED OF DR. DENT'S ORDERS.
--- NOTE | 2019-07-27 00:45 | NUR ---
PT BED ALARM SOUNDING. PT ATTEMPTING TO GET OOB UNASSISTED TO "GO DOWNSTAIRS" PT REORIENTED AND ASSISTED BACK TO BED W/BED ALARM ON.
--- NOTE | 2019-07-27 01:45 | NUR ---
500CC IVF BOLUS COMPLETED. FAINT RT SIDE CRACKLES NOTED. PT RESTING QUIETLY IN BED. SAT 99%. O2 TITRATED TO 4LNC.
--- NOTE | 2019-07-27 04:20 | NUR ---
BED ALARM SOUNDING, PT SITTING ON SIDE OF BED. PT STATES HE NEEDS TO PEE. PT STOOD UP AND URINAL GIVEN TO PT. PT UNABLE TO VOID. WILL BLADDER SCAN. BED BATH GIVEN TO PT. INCONTINENT OF BM.
--- NOTE | 2019-07-27 04:42 | NUR ---
DR. FONG NOTIFIED OF PT'S BP OF 86/48. 0600 LASIX TO BE HELD. RECHECK BP IN 1 HR.
--- NOTE | 2019-07-27 06:03 | NUR ---
DR. FONG ON FLOOR TO SEE PT. PT STATES "I JUST WANT TO SLEEP." ADVISED TO CONTINUE TO MONITOR BP. MADE AWARE OF PT NO VOID THIS SHIFT AND BLADDER SCANNED FOR 237, F/C D/C'D YESTERDAY, PT HAD MINIMAL OUTPUT WITH F/C.
--- NOTE | 2019-07-27 06:22 | NUR ---
DR. DENT NOTIFIED OF PT'S BP OF 86/50 AND NO VOID THIS SHIFT. T.O. RCVD FOR BCX2, 500CC BOLUS, UA TO UC (OK TO ST CATH IF NO VOID IN 1 HR), AND CONSULT ID.
[2019-07-27 06:24] LABS: BASO % 0.3 % (0.0-1.0); EOS # 0.1 10*3/uL (0.0-0.4); EOS % 0.7 % (1.0-4.0); HEMATOCRIT 33.6 % (42.0-52.0); LYMPH # 0.8 10*3/uL (1.3-4.4); LYMPH % 7.6 % (27.0-41.0); MEAN CELL VOLUME 94.9 fl (80.0-94.0); MEAN CORPUSCULAR HGB 29.7 pg (27.0-31.0); MEAN CORPUSCULAR HGB CONC 31.3 g/dl (33.0-37.0); MEAN PLATELET VOLUME 10.6 fl (9.6-12.3); MONO # 0.9 10*3/uL (0.1-1.0); MONO % 8.6 % (3.0-9.0); NEUT # 8.1 10*3/uL (2.3-7.9); NEUT % 82.2 % (47.0-73.0); PLATELET COUNT AUTOMATED 217 10*3/uL (130-400); RED BLOOD COUNT 3.54 10*6/uL (4.50-5.90); RED CELL DISTRI WIDTH 14.2 % (0-14.5); WHITE BLOOD COUNT 9.8 10*3/uL (4.8-10.8)
--- NOTE | 2019-07-27 06:34 | NUR ---
[facility] W/JAYRO RE CONSULT. DR. DENT TO CALL IN AM.
[2019-07-27 06:39] LABS: ALBUMIN 2.1 gm/dl (3.1-4.5); ALKALINE PHOSPHATASE 51 U/L (45-117); BUN 27 mg/dl (7-24); CHLORIDE 99 mmol/L (98-107); CREATININE 1.32 mg/dL (0.70-1.30); POTASSIUM 3.6 mmol/L (3.5-5.1); SGOT/AST 15 IU/L (3-35); SGPT/ALT 16 U/L (12-78); SODIUM 136 mmol/L (136-145); TOTAL PROTEIN 6.5 gm/dL (6.4-8.2)
--- NOTE | 2019-07-27 07:10 | NUR ---
DAUGHTER UPDATED ON PT'S CONDITION.
--- NOTE | 2019-07-27 07:26 | NUR ---
PER NURSING SUSHI CHEF, PTS DAUGHTER CAN COME IN TO VISIT. DR. SOTO TO SPEAK TO DAUGHTER ON PTS CONDITION.
[2019-07-27 11:27] LABS: CLARITY SL CLOUDY (CLEAR); COLOR YELLOW (YELLOW); GLUCOSE NEGATIVE (NEGATIVE)
[2019-07-27 11:28] LABS: BACTERIA 1+; BILIRUBIN NEGATIVE (NEGATIVE); BLOOD NEGATIVE (NEGATIVE); KETONE NEGATIVE (NEGATIVE); LEUKO ESTERASE NEGATIVE (NEGATIVE); MUCOUS 2+; NITRITE NEGATIVE (NEGATIVE); UROBILINOGEN 0.2 E.U./dl (0.2-1.0)
--- NOTE | 2019-07-27 20:30 | NUR ---
ORIENTED. RESTING IN BED WITH NO ACUTE DISTRESS NOTED. RESPIRATIONS EASY. LUNGS DIMINISHED. PULSE OX 97% 3L, TITRATED TO 2L. TEDS IN PLACE. CALL LIGHT WITHIN REACH. NO VOICED COMPLAINTS
--- NOTE | 2019-07-27 21:37 | NUR ---
MEDICATED WITH RESTORIL PER PRN ORDER TO ASSIST WITH SLEEP. WILL MONITOR
--- NOTE | 2019-07-27 22:15 | NUR ---
MEDS EFFECTIVE, SLEEPING.
[2019-07-28] VITALS: BP 86/42
--- NOTE | 2019-07-28 | NUR ---
24 HR chart check completed.
--- NOTE | 2019-07-28 | NUR ---
SLEEPING. NO DISTRESS NOTED. RESPIRATIONS EASY. VSS. CALL LIGHT WITHIN REACH
[2019-07-28 05:53] LABS: BASO % 0.2 % (0.0-1.0); BUN 22 mg/dl (7-24); CHLORIDE 101 mmol/L (98-107); CREATININE 1.08 mg/dL (0.70-1.30); EOS # 0.2 10*3/uL (0.0-0.4); EOS % 2.1 % (1.0-4.0); LYMPH # 0.7 10*3/uL (1.3-4.4); LYMPH % 8.6 % (27.0-41.0); MEAN CELL VOLUME 93.4 fl (80.0-94.0); MEAN CORPUSCULAR HGB 29.9 pg (27.0-31.0); MEAN CORPUSCULAR HGB CONC 32.1 g/dl (33.0-37.0); MEAN PLATELET VOLUME 10.6 fl (9.6-12.3); MONO # 0.9 10*3/uL (0.1-1.0); MONO % 10.6 % (3.0-9.0); NEUT # 6.5 10*3/uL (2.3-7.9); NEUT % 77.9 % (47.0-73.0); PLATELET COUNT AUTOMATED 223 10*3/uL (130-400); POTASSIUM 3.9 mmol/L (3.5-5.1); RED BLOOD COUNT 3.64 10*6/uL (4.50-5.90); RED CELL DISTRI WIDTH 14.2 % (0-14.5); SODIUM 138 mmol/L (136-145); WHITE BLOOD COUNT 8.4 10*3/uL (4.8-10.8)
--- NOTE | 2019-07-28 06:00 | NUR ---
SLEPT THROUGHOUT NIGHT WITH NO DISTRESS NOTED. RESPIRATIONS EASY. CALL LIGHT WITHIN REACH.
[2019-07-28 08:00] VITALS: BP 119/73
[2019-07-28] MEDS ORDERED: METOPROLOL SUCC25 M2 PO (11:32)
[2019-07-28] MEDS ORDERED: LISINOPRIL2.5 MG PO (11:32)
[2019-07-28] MEDS ORDERED: LASIX40 MG PO (11:32)
[2019-07-28] MEDS ORDERED: DOXYCYCLINE100 M3 PO (11:33)
--- NOTE | 2019-07-28 12:06 | NUR ---
FIELD LIABILITY GENERALIST FAXED UPDATES/DISCHARGE NOTICE TO [facility].
--- NOTE | 2019-07-28 13:50 | NUR ---
PATIENT DISCHARGED TO HOME WITH DAUGHTER, INSTRUCTIONS GIVEN, HANCOCK REMAINS IN PER ORDER.
== END 2019-07-28 13:50 | disposition home health service (06) | DRG 291 ==
LOC: ED 11:00 → 5E 13:37 → 4E 13:37 → EDHOLD 13:37 → 5E 13:43 → 4E 19:34
PROVIDERS: Emergency Medicine; Internal Medicine; Internal Medicine Cardiovascular Disease; Orthopaedic Surgery; Student in an Organized Health Care Education/Training Program; ADMIT Internal Medicine
DX: I11.0 Hypertensive heart disease with heart failure (principal); E43 Unspecified severe protein-calorie malnutrition; J18.9 Pneumonia, unspecified organism; J96.01 Acute respiratory failure with hypoxia; E87.3 Alkalosis; I48.21 Permanent atrial fibrillation; D64.9 Anemia, unspecified; E83.41 Hypermagnesemia; E87.8 Other disorders of electrolyte and fluid balance, not elsewhere classified; E03.9 Hypothyroidism, unspecified; F03.90 Unspecified dementia, unspecified severity, without behavioral disturbance, psychotic disturbance, mood disturbance, and anxiety; R79.89 Other specified abnormal findings of blood chemistry; E87.6 Hypokalemia; E78.00 Pure hypercholesterolemia, unspecified; Z96.653 Presence of artificial knee joint, bilateral; E78.5 Hyperlipidemia, unspecified; N40.0 Benign prostatic hyperplasia without lower urinary tract symptoms; I50.23 Acute on chronic systolic (congestive) heart failure; I95.9 Hypotension, unspecified; Z66 Do not resuscitate; Z51.5 Encounter for palliative care; I73.9 Peripheral vascular disease, unspecified; M19.90 Unspecified osteoarthritis, unspecified site; R94.31 Abnormal electrocardiogram [ECG] [EKG]; I49.9 Cardiac arrhythmia, unspecified; T50.2X5A Adverse effect of carbonic-anhydrase inhibitors, benzothiadiazides and other diuretics, initial encounter; Y92.238 Other place in hospital as the place of occurrence of the external cause; Z82.49 Family history of ischemic heart disease and other diseases of the circulatory system; Z79.899 Other long term (current) drug therapy; Z03.818 Encounter for observation for suspected exposure to other biological agents ruled out; Z68.27 Body mass index [BMI] 27.0-27.9, adult

== ENCOUNTER → 2019-08-29 | Outpatient (CLI) | payer OTHER ==
[~2019-08-29] MED LIST changes: +ARTIFICIAL TEAR1514 OP; +DOXYCYCLINE100 M3 PO; +FLOMAX0.4 MG PO; +LASIX40 MG PO; +LISINOPRIL2.5 MG PO; +METOPROLOL SUCC25 M2 PO; +MOTRIN IB200 M1 PO; +SYNTHROID,LEVO88 MCG PO
== END | disposition home or self-care (01) ==
LOC: CT 08-21 13:00
DX: R31.9 Hematuria, unspecified (principal)